=== PATIENT | male | born 1990 | race Hispanic/Latino ===

== ENCOUNTER 2022-06-02 06:56 | Emergency (ER) | payer OTHER ==
[~2022-06-02] VITALS: Ht 182.9 cm; Wt 108.2 kg
[2022-06-02 06:57] VITALS: BP 139/68
[2022-06-02] MEDS ORDERED: ACET500P3 PO (07:14)
[2022-06-02 09:36] LABS: MONO REFLEX EBV COMP NEGATIVE (NEGATIVE)
[2022-06-02] MEDS ORDERED: PENI500T PO (09:51)
[2022-06-02] MEDS ORDERED: BENZ1LOZ9 PO (09:55)
[2022-06-03] MEDS ORDERED: CLEO300C2 PO (09:20)
[2022-06-04 13:07] LABS: EBV AB TO NUCLEAR ANTIGEN >600.0 U/mL (0.0-17.9); EBV VIRAL CAPSID AG IgG >600.0 U/mL (0.0-17.9); EBV VIRAL CAPSID AG IgM <36.0 U/mL (0.0-35.9)
== END 2022-06-02 10:08 | disposition home or self-care (01) ==
LOC: M ED 06:56
DX: H92.01 Otalgia, right ear (principal); J02.9 Acute pharyngitis, unspecified; K29.70 Gastritis, unspecified, without bleeding

== ENCOUNTER 2022-06-03 02:26 | Emergency (ER) | payer OTHER ==
[~2022-06-03] VITALS: Ht 182.9 cm; Wt 106.4 kg
[~2022-06-03 02:26] MED LIST: ACET500P3 PO; BENZ1LOZ9 PO; PENI500T PO
[2022-06-03] MEDS ORDERED: diphenhydrAMINE 50MG CAP PO ONE (03:30)
[2022-06-03] MEDS ORDERED: NS 1,000 ML IV ONE (06:50)
[2022-06-03] MEDS ORDERED: methylPREDNISolone 125MG 2ML VIAL IV ONE (06:50)
[2022-06-03] MEDS ORDERED: FAMOTIDINE 20MG/2ML VIAL IVP ONE (06:50)
[2022-06-03 07:23] LABS: BASO # 0.1 10^3/uL (0.0-0.2); BASO % 0.4 % (0.0-1.0); EOS % 0.2 % (0.0-3.0); HEMATOCRIT 45.7 % (42.0-52.0); HEMOGLOBIN 15.2 g/dl (13.5-17.5); LYMPH # 1.7 10^3/uL (1.5-5.0); LYMPH % 12.5 % (24.0-44.0); MEAN CORPUSCULAR HGB CONC 33.3 g/dl (32.0-36.5); MONO # 1.3 10^3/uL (0.0-0.8); NEUTROPHILS # 10.7 10^3/uL (1.5-8.5); NEUTROPHILS % 77.1 % (36.0-66.0); PLATELET COUNT, AUTOMATED 261 10^3/uL (150-450); RED BLOOD COUNT 5.25 10^6/uL (4.30-6.10); WHITE BLOOD COUNT 13.8 10^3/uL (4.0-10.0)
[2022-06-03] MEDS ORDERED: CLINDAMYCIN 900 MG in IV 1 EA IV ONE (08:00)
[2022-06-03] MEDS ORDERED: ISOVUE-370 76% 100ML VIAL As Ordered ONE (08:01)
[2022-06-03] MEDS ORDERED: CLEO300C2 PO (09:20)
[2022-06-03 09:32] VITALS: BP 134/69
== END 2022-06-03 09:46 | disposition home or self-care (01) ==
LOC: M ED 02:26
DX: J36 Peritonsillar abscess (principal); R59.9 Enlarged lymph nodes, unspecified
CPT/HCPCS: 70491; 80047; 85025; 96361; 96365; 96375; 99284; J2930; Q9967